=== PATIENT | female | born 1970 | race Caucasian/White ===

== ENCOUNTER → 2025-02-24 15:27 | Outpatient (REF) | payer OTHER, SELFPAY | LOC: HWWDC 15:27 | PROVIDERS: ATTENDING PHYSICIAN Obstetrics & Gynecology; FAMILY PHYSICIAN Family Medicine | DX: Z12.31 Encounter for screening mammogram for malignant neoplasm of breast (principal) | CPT/HCPCS: 77063; 77067 ==